=== PATIENT | female | born 1980 | race Caucasian/White ===

== ENCOUNTER 2019-07-02 12:11 | Observation (INO) | payer MEDICAID ==
[~2019-07-02] VITALS: Ht 167.6 cm; Wt 106.6 kg
[2019-07-02] MEDS ORDERED: METF-416 PO (13:10)
[2019-07-02] MEDS ORDERED: GLYB2.5T4 PO (13:11)
== END 2019-07-02 15:30 | disposition home or self-care (01) ==
LOC: 8 EST LDRP 12:11
PROVIDERS: ADMIT Obstetrics & Gynecology; ATTEND Obstetrics & Gynecology
DX: O26.893 Other specified pregnancy related conditions, third trimester (principal); R10.31 Right lower quadrant pain; O99.89 Other specified diseases and conditions complicating pregnancy, childbirth and the puerperium; M54.2 Cervicalgia; O24.913 Unspecified diabetes mellitus in pregnancy, third trimester; Z79.84 Long term (current) use of oral hypoglycemic drugs; Z3A.30 30 weeks gestation of pregnancy
CPT/HCPCS: 36415; 84484; 93005; 99281; G0378

== ENCOUNTER 2024-09-08 07:01 | Emergency (ER) | payer MEDICAID ==
[~2024-09-08] VITALS: Ht 167.6 cm; Wt 102.5 kg
[~2024-09-08 07:01] MED LIST: GLYB2.5T4 PO; METF-416 PO
[2024-09-08 07:16] VITALS: O2SAT 99
[2024-09-08 08:19] VITALS: BP 130/85; PULSE 77; RESP 15; TEMP 36.7; O2SAT 99
== END 2024-09-08 08:20 | disposition home or self-care (01) ==
LOC: ER 07:20
DX: H92.02 Otalgia, left ear (principal); E11.9 Type 2 diabetes mellitus without complications; Z98.890 Other specified postprocedural states; Z79.899 Other long term (current) drug therapy
CPT/HCPCS: 81025; 99282